=== PATIENT | male | born 1940 | race Caucasian/White ===

== ENCOUNTER 2017-06-26 09:45 | Emergency (ER) | payer MEDICARE, OTHER ==
[2017-06-26] MEDS ORDERED: predniSONE 20 MG Tab PO ONE (09:46)
[2017-06-26 09:54] VITALS: BP 152/81
--- NOTE | 2017-06-26 10:45 | EDM.PDOC ---
ED HPI GENERAL MEDICAL PROBLEM - General Chief Complaint: General Stated Complaint: swollen and itchy hands Time Seen by Provider: 06/26/17 10:32 Source of Information: Reports: Patient History Limitations: Reports: No Limitations - History of Present Illness INITIAL COMMENTS - FREE TEXT/NARRATIVE: This patient is a 76 year old male that presents to the ER. Patient reports that he does have history of arthritis. Patient reports that he began on Tuesday with bilateral hand swelling. Patent reports that he is having some numbness and tingling in his hands. Patient denies injury. Patient sensory/motor function intact, neurovascular intact. Pules +2, cap refill <2 sec. Patient denies zheng, dizziness, n, v, d, f, neck pain, neck stiffness, weight loss, cp, soa, edema to feet, dyspnea. Patent alert and oriented. Onset Date: 05/27/17 Location: Reports: Upper Extremity, Left, Upper Extremity, Right Severity: Mild Improves with: Reports: None Worsens with: Reports: None Associated Symptoms: Denies: Confusion, Chest Pain, Cough, cough w sputum, Diaphoresis, Fever/Chills, Headaches, Loss of Appetite, Malaise, Nausea/Vomiting , Rash, Seizure, Shortness of Breath, Syncope, Weakness - Related Data Allergies Allergy/AdvReac Type Severity Reaction Status Date / Time codeine Allergy Dizziness Verified 06/26/17 09:46 morphine Allergy Stomach Verified 06/26/17 09:46 Upset Home Meds: Home Meds Ascorbic Acid [Vitamin C] 500 mg PO DAILY 07/22/13 [History] Aspirin [Halfprin] 81 mg PO DAILY 07/22/13 [History] Cholecalciferol (Vitamin D3) [Vitamin D3] 5,000 unit PO DAILY 07/22/13 [History] Magnesium Oxide 500 mg PO DAILY 07/22/13 [History] Omeprazole 20 mg PO DAILY PRN 07/22/13 [History] Budesonide/Formoterol Fumarate [Symbicort 80-4.5 Mcg Inhaler] 2 puff INH BID PRN 02/20/16 [History] Calcium Carbonate/Vitamin D3 [Oystercal-D 500 mg-400 Unit Tb] 1 tab PO DAILY [History] Furosemide 40 mg PO DAILY 02/20/16 [History] Iron 100 mg PO DAILY 02/20/16 [History] Potassium 1 tab PO DAILY 02/20/16 [History] Triamterene/Hydrochlorothiazid [Triamterene-HCTZ 37.5-25 MG] 1 tab PO DAILY [History] Past Medical History HEENT History: Reports: Cataract, Impaired Vision, Sinusitis Cardiovascular History: Reports: High Cholesterol, Hypertension Respiratory History: Reports: Asthma, COPD, Sleep Apnea, SOB Gastrointestinal History: Reports: Bowel Obstruction, Diverticulosis, GERD, PUD Genitourinary History: Reports: BPH, Other (See Below) Other Genitourinary History: nocturia Musculoskeletal History: Reports: Arthritis Endocrine/Metabolic History: Reports: Vitamin D Deficiency Oncologic (Cancer) History: Reports: Squamous Cell Carcinoma, Other (See Below) Other Oncologic History: tongue CA - Past Surgical History HEENT Surgical History: Reports: Other (See Below) Other HEENT Surgeries/Procedures: removal of half of tongue, saliva gland, and 27 lymph nodes due to cancer GI Surgical History: Reports: Hernia Repair/Other Male Surgical History: Reports: Vasectomy Social & Family History - Family History Family Medical History: Noncontributory - Tobacco Use Smoking Status *Q: Former Smoker Years of Tobacco use: 30 Packs/Tins Daily: 1 Used Tobacco, but Quit: Yes Month/Year Tobacco Last Used: 1992 Second Hand Smoke Exposure: No - Caffeine Use Caffeine Use: Reports: Coffee, Soda - Alcohol Use Days Per Week of Alcohol Use: 0 - Recreational Drug Use Recreational Drug Use: No - Living Situation & Occupation Living situation: Reports: , with Spouse Occupation: Employed ED ROS GENERAL - Review of Systems Review Of Systems: See Below Constitutional: Reports: No Symptoms HEENT: Reports: No Symptoms Respiratory: Reports: No Symptoms Cardiovascular: Reports: No Symptoms Endocrine: Reports: No Symptoms GI/Abdominal: Reports: No Symptoms : Reports: No Symptoms Musculoskeletal: Reports: Joint Swelling (bialteral hands) Skin: Reports: No Symptoms Neurological: Reports: No Symptoms Psychiatric: Reports: No Symptoms Hematologic/Lymphatic: Reports: No Symptoms Immunologic: Reports: No Symptoms ED EXAM, GENERAL - Physical Exam Exam: See Below Exam Limited By: No Limitations General Appearance: Alert, WD/WN, No Apparent Distress Eye Exam: Bilateral Eye: Normal Inspection, PERRL Ears: Normal External Exam, Normal Canal, Hearing Grossly Normal, Normal TMs Ear Exam: Bilateral Ear: Auricle Normal, Canal Normal, TM normal Nose: Normal Inspection, Normal Mucosa, No Blood Throat/Mouth: Normal Inspection, Normal Lips, Normal Gums, Normal Oropharynx, Normal Voice, No Airway Compromise Head: Atraumatic, Normocephalic Neck: Normal Inspection, Supple, Non-Tender, Full Range of Motion Respiratory/Chest: No Respiratory Distress, Lungs Clear, Normal Breath Sounds, No Accessory Muscle Use Cardiovascular: Normal Peripheral Pulses, Regular Rate, Rhythm, No Edema, No Gallop, No JVD, No Murmur, No Rub Peripheral Pulses: 2+: Brachial (L), Brachial (R), Radial (L), Radial (R) (Male) Exam: Deferred Rectal (Males) Exam: Deferred Back Exam: Normal Inspection, Full Range of Motion Extremities: Normal Inspection, Normal Range of Motion, Normal Capillary Refill , Joint Swelling (bialteral hand swelling. Mild tenderness over 1st metacarpal joints bialteral. No redeness, heat. ). No: Slow Capillary Refill Neurological: Alert, Oriented Psychiatric: Normal Affect, Normal Mood Skin Exam: Warm, Dry, Intact, Normal Color, No Rash Lymphatic: No Adenopathy Course - Vital Signs Last Recorded V/S: Last Vital Signs Temp 97.4 F 06/26/17 09:46 Pulse 64 06/26/17 09:46 Resp 20 06/26/17 09:46 BP 152/81 H 06/26/17 09:46 Pulse Ox 97 06/26/17 09:46 - Orders/Labs/Meds Labs: Laboratory Tests 06/26/17 06/26/17 Range/Units 10:15 10:15 WBC 5.9 (5.0-10.0) 10^3/uL RBC 4.42 L (4.50-6.00) 10^6/uL Hgb 12.5 L (14.0-18.0) g/dL Hct 39.5 L (40.0-54.0) % MCV 89.4 (82.0-94.0) fL MCH 28.3 (27.0-32.0) pg MCHC 31.6 L (33.0-38.0) g/dL RDW Coeff of Román 14.9 (11.0-15.0) % Plt Count 238 (150-400) 10^3/uL Neut % (Auto) 75.0 (35-85) % Lymph % (Auto) 12.9 (10-55) % [place] % (Auto) 9.7 (0-16) % Eos % (Auto) 1.9 (0-5) % Baso % (Auto) 0.5 (0-3) % Neut # (Auto) 4.41 (1.80-7.00) 10^3/uL Lymph # (Auto) 0.76 L (1.00-4.80) 10^3/uL [place] # (Auto) 0.57 (0.00-0.80) 10^3/uL Eos # (Auto) 0.11 (0.00-0.45) 10^3/uL Baso # (Auto) 0.03 10^3/uL ESR 33 H (0-15) mm/hr Uric Acid 6.4 (3.5-7.2) mg/dL C-Reactive Protein 3.4 H (0.2-0.8) mg/dL NT-Pro-B Natriuret Pep 670 (0-1000) pg/mL Meds: Medications Discontinued Medications Generic Name Dose Route Start Last Admin Trade Name Freq PRN Reason Stop Dose Admin Methylprednisolone Sodium Succinate 125 mg 06/26/17 10:47 06/26/17 10:51 Solu-Medrol IM 06/26/17 10:48 125 mg NOW STA Administration Departure - Departure Time of Disposition: 11:04 Disposition: Home, Self-Care 01 Condition: Fair Clinical Impression: Bilateral hand swelling - Discharge Information Instructions: Joint Pain, [id number], Osteoarthritis Referrals: Bogdan Ken MD [Primary Care Provider] - Forms: ED Department Discharge Additional Instructions: Followup with your primary care provider See primary care rpovider if swelling does not resolve with steroids in 3-5 days Return to the ER for worsening of condition or any emergent concerns Rest Elevate Prednisone 20mg 1 pill twice a day for 5 days #10 no refill - Assessment/Plan Plan: PLEASE SEE RN NOTE FOR PFSH.
[2017-06-26] MEDS ORDERED: methylPREDNISolone Sodium Succinate 125 MG/2 ML SDV IM STA (10:47)
[2017-06-26] MEDS ORDERED: Take Home: predniSONE 20 MG, 2 Tab Pack PO ONE (11:11)
== END 2017-06-26 11:20 | disposition home or self-care (01) ==
LOC: CC.ED 09:45
DX: R22.33 Localized swelling, mass and lump, upper limb, bilateral (principal); E78.00 Pure hypercholesterolemia, unspecified; I10 Essential (primary) hypertension; Z88.5 Allergy status to narcotic agent; Z79.82 Long term (current) use of aspirin; Z79.899 Other long term (current) drug therapy; Z87.891 Personal history of nicotine dependence
CPT/HCPCS: 36415; 83880; 84550; 85025; 85651; 86140; 96372; 99283; A9270-GY; J2930

== ENCOUNTER 2021-09-01 09:05 | Emergency (ER) | payer MEDICARE, OTHER ==
[2021-09-01 09:38] VITALS: BP 169/84; PULSE 75
== END 2021-09-01 10:03 | disposition home or self-care (01) ==
LOC: CC.ED 09:05
DX: S40.861A Insect bite (nonvenomous) of right upper arm, initial encounter (principal); E78.00 Pure hypercholesterolemia, unspecified; I10 Essential (primary) hypertension; K21.9 Gastro-esophageal reflux disease without esophagitis; J44.9 Chronic obstructive pulmonary disease, unspecified; N40.0 Benign prostatic hyperplasia without lower urinary tract symptoms; Z88.5 Allergy status to narcotic agent; Z79.82 Long term (current) use of aspirin; Z79.899 Other long term (current) drug therapy; W57.XXXA Bitten or stung by nonvenomous insect and other nonvenomous arthropods, initial encounter
CPT/HCPCS: 99282; 99283

== ENCOUNTER → 2021-09-18 | Day surgery (SDC) | payer MEDICARE, OTHER ==
[~2021-09-18] MED LIST: Ketamine 200 MG/20 ML MDV ONE; Lidocaine 2% 5 ML SDV ONE; Propofol 200 MG/20 ML SDV ONE; fentaNYL 50 MCG/ML SDV ONE
[2021-09-18] MEDS: Lactated Ringers 1,000 ML IV SCH (09:13)
[2021-09-18 12:02] VITALS: BP 133/86; PULSE 75
== END ==
LOC: CC.SDS 08:49
PROVIDERS: ATTEND Family Medicine
DX: K62.1 Rectal polyp (principal); K57.30 Diverticulosis of large intestine without perforation or abscess without bleeding; K29.70 Gastritis, unspecified, without bleeding; K21.9 Gastro-esophageal reflux disease without esophagitis; N40.0 Benign prostatic hyperplasia without lower urinary tract symptoms; E11.9 Type 2 diabetes mellitus without complications; J44.9 Chronic obstructive pulmonary disease, unspecified; E78.5 Hyperlipidemia, unspecified; I10 Essential (primary) hypertension; M17.10 Unilateral primary osteoarthritis, unspecified knee; I83.819 Varicose veins of unspecified lower extremity with pain; N28.9 Disorder of kidney and ureter, unspecified; Z88.5 Allergy status to narcotic agent; Z88.6 Allergy status to analgesic agent; Z87.891 Personal history of nicotine dependence
CPT/HCPCS: 00813; 87081; 99100; J2704; J3010; J7120

== ENCOUNTER → 2022-03-26 | Day surgery (SDC) | payer MEDICARE, OTHER ==
[~2022-03-26] MED LIST changes: -Ketamine 200 MG/20 ML MDV ONE; +Lidocaine 1% 30 ML SDV SUBCUT ONE; +Lidocaine 1% w/EPINEPHrine 100 ML, Sodium Chloride 0.9% 900 ML, Sodium Bicarbonate 10 MEQ INJECT ONE; -Lidocaine 2% 5 ML SDV ONE; -Propofol 200 MG/20 ML SDV ONE; -fentaNYL 50 MCG/ML SDV ONE
[2022-03-26 16:04] VITALS: BP 179/69; PULSE 97
== END ==
LOC: CC.SDS 13:37
PROVIDERS: ATTEND Family Medicine
DX: I83.92 Asymptomatic varicose veins of left lower extremity (principal); I83.91 Asymptomatic varicose veins of right lower extremity; N40.0 Benign prostatic hyperplasia without lower urinary tract symptoms; K21.9 Gastro-esophageal reflux disease without esophagitis; I10 Essential (primary) hypertension; E78.5 Hyperlipidemia, unspecified; J44.9 Chronic obstructive pulmonary disease, unspecified; Z79.899 Other long term (current) drug therapy; Z88.5 Allergy status to narcotic agent; Z88.6 Allergy status to analgesic agent
CPT/HCPCS: A4216; J7030